=== PATIENT | female | born 1970 | race Caucasian/White ===

== ENCOUNTER → 2018-07-09 | Outpatient (CLI) | payer OTHER ==
--- NOTE | 2018-07-09 15:01 | US ---
EXAMINATION TYPE: US bladder DATE OF EXAM: 07/09/2018 COMPARISON: NONE CLINICAL HISTORY: Overactive Bladder N32.81. EXAM MEASUREMENTS: bladder volume: 581.3 ml Post Void Residual Volume: 44.5 mL Color Doppler performed to assess ureteral jets. Bilateral Jets seen: No Normal Post Void Residual (less than 50ml): No Urinary bladder is anechoic and unremarkable without filling defect. The urinary bladder bartholomew do not appear to be trabeculated ultrasound. IMPRESSION: Post void residual within the urinary bladder approaches abnormal values.
== END | disposition home or self-care (01) ==
LOC: RADUSWWP 14:05
PROVIDERS: ATTEND Family Medicine
DX: R93.41 Abnormal radiologic findings on diagnostic imaging of renal pelvis, ureter, or bladder (principal); N32.81 Overactive bladder
CPT/HCPCS: 76857

== ENCOUNTER → 2021-05-09 | Outpatient (CLI) | payer OTHER ==
--- NOTE | 2021-05-10 09:33 | MM ---
Reason for exam: screening (asymptomatic). History: Patient is postmenopausal and had first child at age 30. Took hormonal contraceptives for 10 years. Physical Findings: A clinical breast exam by your physician is recommended on an annual basis and results should be correlated with mammographic findings. MG Screening Mammo w CAD Bilateral CC and MLO view(s) were taken. No prior studies available for comparison. There are scattered fibroglandular densities. Finding #1: There is a 4 mm equal density (isodense) mass in the subareolar position of the right breast. Finding #2: There are typically benign calcifications in the left breast. Finding #3: There is questionable architectural distortion in the upper inner quadrant of the right breast. ASSESSMENT: Incomplete: need additional imaging evaluation, BI-RAD 0 RECOMMENDATION: Special view mammogram of the right breast. If lesion persists on supplemental views, image directed ultrasound is recommended. [facility] will attempt to contact patient to return for supplemental views and ultrasound if indicated.
== END | disposition home or self-care (01) ==
LOC: RADMAMWWP 08:03
PROVIDERS: ATTEND Family Medicine
DX: Z12.31 Encounter for screening mammogram for malignant neoplasm of breast (principal)
CPT/HCPCS: 77067

== ENCOUNTER → 2021-05-10 | Outpatient (CLI) | payer OTHER ==
--- NOTE | 2021-05-10 14:53 | ECHOS ---
STRESS ECHOCARDIOGRAM INDICATIONS: @@ BASELINE HEART RATE: @@ BASELINE BLOOD PRESSURE: @@ MAXIMUM HEART RATE: @@ MAXIMUM BLOOD PRESSURE: @@ 85% MPHR: @@ 100% MPHR: @@ METS: @@ MAXIMUM STAGE REACHED: @@ TOTAL EXERCISE TIME: @@ CLINICAL INFORMATION: Baseline EKG revealed normal sinus rhythm with nonspecific inferolateral ST abnormality. There was a short [place] interval with an equivocal delta wave. Patient walked for 7 minutes 16 seconds, achieved a maximal heart rate of 151 beats per minute, which is more than 85% of predicted maximal. Resting heart rate was 93 beats per minute. Resting blood pressure was 132/67. Peak blood pressure was 198/53. EKG did not reveal any ST-segment changes to indicate ischemia. However, resting EKG had ST- segment abnormality, making this an inconclusive stress test. There were no subjective symptoms of angina. By EKG criteria, this is considered an inconclusive stress test with fair exercise capacity. The resting EKG was abnormal to begin with. There was no angina and no significant arrhythmia. Baseline echo images revealed normal wall motion and wall thickening of all segments. At peak exercise there was good augmentation of left ventricular wall motion and wall thickening of all segments, suggesting that there is no evidence of stress-induced ischemia on this study. FINAL IMPRESSION: 1. By EKG criteria, this is an inconclusive stress test because of resting EKG changes. Fair exercise capacity was noted. There was no angina. 2. Normal stress echocardiogram without evidence of ischemia. MMJORGEL / FERMÍNN: [id number] /
== END | disposition home or self-care (01) ==
LOC: RADNMMAIN 09:09
PROVIDERS: ATTEND Family Medicine
DX: R94.31 Abnormal electrocardiogram [ECG] [EKG] (principal)
CPT/HCPCS: 93351

== ENCOUNTER → 2021-05-12 | Outpatient (CLI) | payer OTHER ==
--- NOTE | 2021-05-12 14:58 | MM ---
Reason for exam: additional evaluation requested from abnormal screening. Last mammogram was performed less than 1 month ago. History: Patient is postmenopausal and had first child at age 30. Took hormonal contraceptives for 10 years. Physical Findings: Nurse did not find any significant physical abnormalities on exam. MG Work Up Mamm w CAD RT Spot compression CC, spot compression MLO, and LM view(s) were taken of the right breast. Prior study comparison: May 09, 2021, bilateral MG screening mammo w CAD. There are scattered fibroglandular densities. The upper outer quadrant density disperses. The subareolar density becomes less defined. Precautionary 6 months follow up recommended. These results were verbally communicated with the patient and result sheet given to the patient on 05/12/21. ASSESSMENT: Probably benign, BI-RAD 3 RECOMMENDATION: Follow-up diagnostic mammogram of the right breast in 6 months.
== END | disposition home or self-care (01) ==
LOC: RADMAMWWP 13:48
PROVIDERS: ATTEND Family Medicine
DX: R92.8 Other abnormal and inconclusive findings on diagnostic imaging of breast (principal)
CPT/HCPCS: 77065

== ENCOUNTER 2021-06-09 07:02 | Day surgery (SDC) | payer OTHER ==
[2021-06-07 09:38] VITALS: BMI 40.2
[~2021-06-09 07:02] MED LIST: LACTATED RINGERS 1,000 ML IV SCH
[2021-06-09 07:38] VITALS: TEMP 98.4
[2021-06-09] MEDS ORDERED: LIDOCAINE 1% (10MG/ML) FOR IV START INTRADERMA ONE (07:38)
[2021-06-09 07:40] LABS: Glucose,Whole Blood 129 mg/dL (75-99)
[2021-06-09] MEDS ORDERED: LIDOCAINE 1% INJ 10MG/ML (20 ML MDV) ONE (08:06)
[2021-06-09] MEDS ORDERED: PROPOFOL 10 MG/ML 20 ML VIAL IV ONE (08:06)
--- NOTE | 2021-06-09 08:17 | P.GSHP ---
History of Present Illness H&P Date: 06/09/21 Chief Complaint: Screening colonoscopy This a 50-year-old female presents today for screening colonoscopy. She's never had a colonoscopy before. She denies any significant complaints Past Medical History Past Medical History: Diabetes Mellitus, GERD/Reflux, Hypertension, Osteoarthritis (OA), Skin Disorder, Sleep Apnea/CPAP/BIPAP Additional Past Medical History / Comment(s): no cpap used, eczema, compound fx tailbone History of Any Multi-Drug Resistant Organisms: None Reported Past Surgical History: Cholecystectomy Additional Past Surgical History / Comment(s): oophorectomy(not sure which side) Past Anesthesia/Blood Transfusion Reactions: Motion Sickness Smoking Status: Current every day smoker - Past Family History Mother Family Medical History: No Reported History Medications and Allergies Home Medications Medication Instructions Recorded Confirmed Type Atorvastatin [Lipitor] 10 mg PO HS 06/07/21 06/07/21 History Celecoxib [CeleBREX] 200 mg PO BID 06/07/21 06/09/21 History Cetirizine HCl [Zyrtec] 10 mg PO DAILY 06/07/21 06/09/21 History Glimepiride [Amaryl] 2 mg PO [id number] 06/07/21 06/09/21 History Joint Health 1 tab PO DAILY 06/07/21 06/09/21 History amLODIPine [Norvasc] 5 mg PO HS 06/07/21 06/09/21 History buPROPion SR [Wellbutrin SR] 150 mg PO BID 06/07/21 06/09/21 History busPIRone HCL 5 mg PO BID 06/07/21 06/09/21 History metFORMIN HCL [Glucophage XR] 1,000 mg PO BID 06/07/21 06/09/21 History Allergies Allergy/AdvReac Type Severity Reaction Status Date / Time No Known Allergies Allergy Verified 06/07/21 09:26 Surgical - Exam Vital Signs Temp Pulse Resp BP Pulse Ox 98.4 F 87 16 135/79 98 06/09/21 07:24 06/09/21 07:24 06/09/21 07:24 06/09/21 07:24 06/09/21 07:24 - General well developed, well nourished, no distress - Eyes PERRL - ENT normal pinna - Neck no masses - Respiratory normal expansion - Cardiovascular Rhythm: regular - Abdomen Abdomen: soft, non tender Results - Labs Abnormal Lab Results - Last 24 Hours (Table) 06/09/21 Range/Units 07:35 POC Glucose (mg/dL) 129 H (75-99) mg/dL Assessment and Plan Assessment: We'll perform screening colonoscopy
--- NOTE | 2021-06-09 08:28 | P.OP ---
Date of Procedure: 06/09/21 Preoperative Diagnosis: Screening colonoscopy Postoperative Diagnosis: Normal colonoscopy Procedure(s) Performed: Colonoscopy Anesthesia: MAC Surgeon: Hollis Velarde Pathology: none sent Condition: stable Disposition: PACU Description of Procedure: PROCEDURE: The patient was placed on the endoscopy table in the lateral position. Digital rectal examination was performed which revealed no abnormalities. . Flexible colonoscope was then placed in the patient's anus and passed throughout the entire colon. The ileocecal valve was visualized. The cecum, ascending, transverse, descending and sigmoid colon were normal. The rectum was normal as well. There were no masses, polyps or diverticula noted in the entire colon. SUMMARY OF FINDINGS: Normal colonoscopy.
[2021-06-09 08:51] VITALS: BP 120/70; PULSE 89; RESP 16
== END 2021-06-09 09:18 | disposition home or self-care (01) ==
LOC: ORWHC2ENDO 07:02
PROVIDERS: ATTEND Surgery
DX: Z12.11 Encounter for screening for malignant neoplasm of colon (principal); E11.9 Type 2 diabetes mellitus without complications; K21.9 Gastro-esophageal reflux disease without esophagitis; I10 Essential (primary) hypertension; G47.33 Obstructive sleep apnea (adult) (pediatric); F17.210 Nicotine dependence, cigarettes, uncomplicated; M19.90 Unspecified osteoarthritis, unspecified site; Z79.1 Long term (current) use of non-steroidal anti-inflammatories (NSAID); Z79.84 Long term (current) use of oral hypoglycemic drugs; Z90.49 Acquired absence of other specified parts of digestive tract; Z90.721 Acquired absence of ovaries, unilateral
CPT/HCPCS: J2001; J2704; G0121